=== PATIENT | female | born 1995 | race Caucasian/White ===

== ENCOUNTER → 2018-10-01 | Outpatient (CLI) | payer OTHER ==
--- NOTE | 2018-10-05 08:53 | EEG PRO FEE REPORT ---
EEG INTERPRETATION PATIENT NAME: OKSANA ROSE ROOM#: ORDER#: [id number] DATE OF STUDY: 10/02/2018 : 1995 REFERRING MD: BRYANT FELTON M.D. MEDICATIONS: vitamins History This is a 23 year old right handed woman with history of seizures since 2010, has had three seizures with her last one in December 2013. She has a family history of seizures in a cousin. She is 16 weeks . This EEG was requested for seizures. EEG Interpretation This EEG was recorded in the awake state only. The awake EEG is characterized by a well organized background with a well developed and reactive posterior dominant rhythm of 11 Hz. There was alpha squeak with a relatively high amplitude posterior dominant rhythm. There was prominent sharply contoured mu present. Photic stimulation resulted in a good driving response. Paradoxical alpha was noted on the onset of photic stimulation characterized by alpha riding on one delta wave. Hyperventilation resulted in generalized slowing of the background. There were no epileptiform abnormalities. The EKG showed a regular rhythm. EEG Impression This EEG is within normal limits in the awake state only. A further study to obtain drowsiness and sleep may be considered. INTERPRETING PHYSICIAN: SHAHID VASQUES M.D. /: MTEFFT TT: [id number] ID: [id number] /: [id number] TD: 1410 JOB: [id number] cc:Robbin GARCIA M.D. > MTDD
== END ==
LOC: NEURO 08:06
PROVIDERS: ATTEND Pediatrics
DX: O26.892 Other specified pregnancy related conditions, second trimester (principal); G40.209 Localization-related (focal) (partial) symptomatic epilepsy and epileptic syndromes with complex partial seizures, not intractable, without status epilepticus; Z3A.16 16 weeks gestation of pregnancy
CPT/HCPCS: 95819